=== PATIENT | male | born 1945 | race Two or more races ===

== ENCOUNTER 2017-04-19 03:38 | Emergency (ER) | payer OTHER ==
[~2017-04-19] VITALS: Ht 175.3 cm; Wt 70.3 kg
[2017-04-19] MEDS ORDERED: PROSCAR5 MG ORAL (03:52)
[2017-04-19] MEDS ORDERED: LANTUS SOL100 UNIT/1 SUBQ (03:52)
[2017-04-19] MEDS ORDERED: TYLENOL325 MG ORAL (03:52)
[2017-04-19] MEDS ORDERED: TAMSULOSIN HCL0.4 MG ORAL (03:52)
[2017-04-19] MEDS ORDERED: CATAPRES0.1 MG ORAL (03:52)
--- NOTE | 2017-04-19 03:52 | Emergency Room Report ---
History of Present Illness General Chief Complaint: Chest Pain Source: Patient, EMS Present Illness HPI Patient transported via EMS with chest pain which began several hours ago. He says it's left lateral side of his chest. Somewhat inspiratory. He wasn't doing anything. He denies any problems with his heart in the past. He's had this pain many years ago and doesn't know what caused it. He denies indigestion. Initially the pain was a 7. Paramedics gave him nitroglycerin and aspirin. This reduced the pain somewhat. He has minimal pain is this time. Also is complaining of anxiety and wants something to help him relax. Patient has atkins because he "urinated too much". H/O diabetes. No NVD, cough, dyspnea, rashes, sore throat, palpitations, headache, joint pain. No fevers. Allergies: Coded Allergies: No Known Allergies (Unverified , 04/19/17) Patient History Past Medical History: see triage record Social History: Reports: smoking, alcohol use Social History Narrative at SNF - born in [facility] Reviewed Nursing Documentation: PMH: Agreed, PSxH: Agreed Nursing Documentation-PMH Past Medical History: No History, Except For Hx Cardiac Problems: No - Anemia Hx Hypertension: Yes Hx Diabetes: Yes Hx Dialysis: No - Renal failure, Urine Incontinence Hx Neurological Problems: No - BPH Review of Systems All Other Systems: negative except mentioned in HPI Physical Exam Vital Signs Date Time Temp Pulse Resp B/P (MAP) Pulse Ox O2 Delivery O2 Flow Rate FiO2 04/19/17 03:35 97.2 99 12 115/79 97 Room Air Sp02 EP Interpretation: reviewed, normal General Appearance: well appearing, no apparent distress, GCS 15 Head: normocephalic Eyes: bilateral eye normal inspection, bilateral eye PERRL ENT: moist mucus membranes Neck: supple Respiratory: lungs clear, normal breath sounds Cardiovascular #1: regular rate, rhythm Cardiovascular #2: 2+ radial (R) Gastrointestinal: normal inspection, normal bowel sounds, non tender, no mass, non-distended Genitourinary: other - atkins Musculoskeletal: back normal, gait/station normal, normal range of motion Neurologic: alert, sensory intact, other - TD movements of mouth Psychiatric: mood/affect normal Skin: normal inspection, warm/dry Medical Decision Making Diagnostic Impression: Primary Impression: Chest pain Qualified Codes: R07.9 - Chest pain, unspecified Additional Impressions: UTI (urinary tract infection) Qualified Codes: T83.511A - Infection and inflammatory reaction due to indwelling urethral catheter, initial encounter; N39.0 - Urinary tract infection , site not specified Diabetes Qualified Codes: E10.9 - Type 1 diabetes mellitus without complications ER Course The patient complains with left-sided chest pain. The onset and character is atypical however we need to exclude cardiac cause. Differential includes acute myocardial infarction, costochondritis, chest wall strain, GERD amongst others. Patient will be evaluated with EKG, chest x-ray and labs. He was treated with aspirin the field and nitrates. He'll be given a dose of morphine and also Ativan. EKG - no injury. CXR no infiltrates. Labs with neg troponin. UA with pyuria - will cover with antibiotics. Improved with treatment. NO more pain. Suspicion is low for CAD. Will observe at [facility]. Laboratory Tests Test 04/19/17 04:20 White Blood Count 7.0 K/UL (4.8-10.8) Red Blood Count 3.68 M/UL (4.70-6.10) L Hemoglobin 9.2 G/DL (14.2-18.0) L Hematocrit 29.1 % (42.0-52.0) L Mean Corpuscular Volume 79 FL (80-99) L Mean Corpuscular Hemoglobin 24.9 PG (27.0-31.0) L Mean Corpuscular Hemoglobin Concent 31.5 G/DL (32.0-36.0) L Red Cell Distribution Width 19.4 % (11.6-14.8) H Platelet Count 153 K/UL (150-450) Mean Platelet Volume 6.4 FL (6.5-10.1) L Neutrophils (%) (Auto) 67.5 % (45.0-75.0) Lymphocytes (%) (Auto) 24.0 % (20.0-45.0) Monocytes (%) (Auto) 6.4 % (1.0-10.0) Eosinophils (%) (Auto) 1.4 % (0.0-3.0) Basophils (%) (Auto) 0.6 % (0.0-2.0) Prothrombin Time 11.0 SEC (9.30-11.50) Prothrombin Time INR 1.1 (0.9-1.1) PTT 30 SEC (23-33) Urine Color Yellow Urine Appearance Cloudy Urine pH 6 (4.5-8.0) Urine Specific Warner 1.015 (1.005-1.035) Urine Protein 3+ (NEGATIVE) H Urine Glucose (UA) Negative (NEGATIVE) Urine Ketones Negative (NEGATIVE) Urine Occult Blood 3+ (NEGATIVE) H Urine Nitrite Negative (NEGATIVE) Urine Bilirubin Negative (NEGATIVE) Urine Urobilinogen 1 MG/DL (0.0-1.0) H Urine Leukocyte Esterase 3+ (NEGATIVE) H Urine RBC 10-15 /HPF (0 - 0) H Urine WBC Tntc /HPF (0 - 0) H Urine Squamous Epithelial Cells None /LPF (NONE/OCC) Urine Bacteria Moderate /HPF (NONE) H Urine Yeast Moderate /HPF (NONE) H Sodium Level 134 MMOL/L (136-145) L Potassium Level 4.5 MMOL/L (3.5-5.1) Chloride Level 105 MMOL/L (98-107) Carbon Dioxide Level 21 MMOL/L (21-32) Anion Gap 8 mmol/L (5-15) Blood Urea Nitrogen 21 mg/dL (7-18) H Creatinine 1.4 MG/DL (0.55-1.30) H Estimate Glomerular Filtration Rate 50.1 mL/min (>60) Glucose Level 178 MG/DL (74-106) H Calcium Level 7.2 MG/DL (8.5-10.1) L Total Bilirubin 0.5 MG/DL (0.2-1.0) Aspartate Amino Transferase (AST) 43 U/L (15-37) H Alanine Aminotransferase (ALT) 34 U/L (12-78) Alkaline Phosphatase 153 U/L (46-116) H Total Creatine Kinase 16 U/L (26-308) L Troponin I 0.025 ng/mL (0.000-0.056) Pro-B-Type Natriuretic Peptide 492 pg/mL (0-125) H Total Protein 6.9 G/DL (6.4-8.2) Albumin 1.9 G/DL (3.4-5.0) L Globulin 5.0 g/dL Albumin/Globulin Ratio 0.4 (1.0-2.7) L EKG Diagnostic Results Rate: normal Rhythm: NSR ST Segments: no acute changes Rhythm Strip Diag. Results EP Interpretation: yes Rhythm: NSR, no PVC's, no ectopy Chest X-Ray Diagnostic Results Chest X-Ray Diagnostic Results : Chest X-Ray Ordered: Yes # of Views/Limited/Complete: 1 View Indication: Chest Pain EP Interpretation: Yes Interpretation: no consolidation, no effusion, no pneumothorax, no acute cardiopulmonary disease Impression: No acute disease Electronically Signed by: Electronically signed by Milton Rene MD Last Vital Signs Date Time Temp Pulse Resp B/P (MAP) Pulse Ox O2 Delivery O2 Flow Rate FiO2 04/19/17 08:00 97.7 68 18 150/82 98 Room Air Status: improved Disposition: XFER SNF Condition: Improved Scripts Tramadol Hcl* (ULTRAM*) 50 Mg Tablet 50 MG ORAL Q6H Y for For Pain, #10 TAB 0 Refills Prov: Milton Rene M.D. 04/19/17 Nitrofurantoin Monohyd/M-Cryst* (MACROBID 100 MG*) 100 Mg Capsule 100 MG ORAL EVERY 12 HOURS, #14 CAP Prov: Milton Rene M.D. 04/19/17 Milton Rene M.D. Apr 19, 2017 03:52
[2017-04-19] MEDS ORDERED: LORazepam Inj 2mg/ml 1ml IV ONE (04:00)
[2017-04-19] MEDS ORDERED: Morphine Sulfate 2mg/ml Inj IVP ONE (04:00)
[2017-04-19 04:25] LABS: BASOPHILS % (AUTO) 0.6 % (0.0-2.0); EOSINOPHILS % (AUTO) 1.4 % (0.0-3.0); MEAN CORPUSCULAR HEMOGLOBIN 24.9 PG (27.0-31.0); MEAN CORPUSCULAR HGB CONC 31.5 G/DL (32.0-36.0); MEAN CORPUSCULAR VOLUME 79 FL (80-99); MEAN PLATELET VOLUME 6.4 FL (6.5-10.1); MONOCYTES % (AUTO) 6.4 % (1.0-10.0); NEUTROPHILS % (AUTO) 67.5 % (45.0-75.0); PLATELET COUNT 153 K/UL (150-450); RED BLOOD COUNT 3.68 M/UL (4.70-6.10); RED CELL DISTRIBUTION WIDTH 19.4 % (11.6-14.8)
[2017-04-19 04:27] LABS: APPEARANCE,URINE CLOUDY; KETONES,URINE NEGATIVE (NEGATIVE); LEUKOCYTE ESTERASE ,URINE 3+ (NEGATIVE); NITRITE,URINE NEGATIVE (NEGATIVE); PH,URINE 6 (4.5-8.0); PROTEIN,URINE 3+ (NEGATIVE); UROBILINOGEN,URINE 1 MG/DL (0.0-1.0)
[2017-04-19 04:38] LABS: BACTERIA,URINE MODERATE /HPF; WBC,URINE TNTC /HPF (0 - 0)
[2017-04-19 04:39] LABS: YEAST,URINE MODERATE /HPF
[2017-04-19 04:40] LABS: INR 1.1 (0.9-1.1)
[2017-04-19 04:54] LABS: ALANINE AMINOTRANSFERASE 34 U/L (12-78); ALBUMIN/GLOBULIN RATIO 0.4 (1.0-2.7); ANION GAP 8 mmol/L (5-15); ASPARTATE AMINO TRANSFERASE 43 U/L (15-37); CALCIUM 7.2 MG/DL (8.5-10.1); CARBON DIOXIDE 21 MMOL/L (21-32); CHLORIDE 105 MMOL/L (98-107); CREATININE 1.4 MG/DL (0.55-1.30); GLOMERULAR FILTRATION RATE 50.1 mL/min (>60); POTASSIUM 4.5 MMOL/L (3.5-5.1); SODIUM 134 MMOL/L (136-145); TOTAL PROTEIN 6.9 G/DL (6.4-8.2)
[2017-04-19] MEDS ORDERED: cefTRIAXone 1 GM in NS 55 ML IVPB ONE (05:00)
[2017-04-19 05:02] VITALS: BP 128/69
[2017-04-19 06:35] VITALS: BP 117/65
[2017-04-19] MEDS ORDERED: TRAMADOL HCL50 MG ORAL (06:44)
[2017-04-19] MEDS ORDERED: NITROFURANTOIN100 M2 ORAL (06:44)
[2017-04-19 07:07] VITALS: BP 131/79
[2017-04-19 08:00] VITALS: BP 150/82
--- NOTE | 2017-04-19 09:33 | Diagnostic Imaging Report ---
Indication: Reason For Exam: CP Technique: XRAY Chest 1v Comparison:None Findings: There is normal in size. The aorta is calcified. Interstitial disease is noted. Linear densities are noted in both bases. No pleural fluid. Bones are unremarkable. Impression: Basilar atelectasis. Atherosclerotic change. No acute abnormality.
--- NOTE | 2017-04-19 19:19 | Cardiology Report ---
APPROVED REPORT EKG Measurement Heart [id number] Normal sinus rhythm Normal ECG
== END 2017-04-19 08:05 ==
LOC: EDBD 03:38 → EMR 03:40
DX: R07.9 Chest pain, unspecified (principal); E10.9 Type 1 diabetes mellitus without complications; N39.0 Urinary tract infection, site not specified; T83.511A Infection and inflammatory reaction due to indwelling urethral catheter, initial encounter; F41.9 Anxiety disorder, unspecified; N40.0 Benign prostatic hyperplasia without lower urinary tract symptoms; E11.9 Type 2 diabetes mellitus without complications; I10 Essential (primary) hypertension; F17.200 Nicotine dependence, unspecified, uncomplicated; Y84.6 Urinary catheterization as the cause of abnormal reaction of the patient, or of later complication, without mention of misadventure at the time of the procedure; Y92.9 Unspecified place or not applicable
CPT/HCPCS: 36415; 71010; 80053; 81003; 82550; 83880; 84484; 85025; 85610; 85730; 87086; 93005; 96365; 96375; 99284; J0696; J2270; S0028